=== PATIENT | female | born 1985 | race American Indian/Alaskan Native ===

== ENCOUNTER 2022-04-15 13:24 | Emergency (ER) | payer OTHER ==
[2022-04-15] MEDS ORDERED: SODIUM CHLORIDE 0.9% 1000 ML 1,000 ML IV ONE (21:18)
[2022-04-15] MEDS ORDERED: MORPHINE 4 MG/1 ML INJ IV ONE (21:18)
[2022-04-15] MEDS ORDERED: KETOROLAC 30 MG/1 ML INJ IV ONE (21:18)
[2022-04-15] MEDS ORDERED: ONDANSETRON 4 MG/2 ML INJ IV ONE (21:18)
--- NOTE | 2022-04-15 22:11 | Emergency Department Report ---
ED Female HPI - General Chief complaint: Vaginal Bleeding Stated complaint: ABNORMAL BLEEDING Time Seen by Provider: 04/15/22 20:15 Source: patient Mode of arrival: Ambulatory Limitations: No Limitations - History of Present Illness Initial comments: 36-year-old female presenting with vaginal bleeding f. Patient states that she has been having heavy bleeding for the past 4 weeks, however it is getting much heavier with clots. Describes sharp pain in the pelvic area, symptoms associated with nausea and vomiting. On examination patient is hysterical, she is crying. She denies history of fibroids, endometriosis, ovarian cyst. She denies being , no headache dizziness or vision changes, no chest pain no shortness of breath, no flank pain - Related Data Previous Rx's Medication Instructions Recorded Last Taken Type Naproxen [Naprosyn] 375 mg PO BID PRN #20 tablet 04/16/22 Unknown Rx Ondansetron [Zofran Odt] 4 mg PO Q8HR PRN #12 tab.rapdis 04/16/22 Unknown Rx Allergies Allergy/AdvReac Type Severity Reaction Status Date / Time No Known Allergies Allergy Unverified 04/15/22 16:35 ED Review of Systems ROS: Stated complaint: ABNORMAL BLEEDING Other details as noted in HPI Constitutional: no symptoms reported Eyes: as per HPI ENT: as per HPI Respiratory: see HPI Cardiovascular: denies: chest pain, palpitations Endocrine: denies: excessive sweating Gastrointestinal: abdominal pain. denies: nausea, diarrhea Genitourinary: abnormal menses Musculoskeletal: denies: back pain Skin: denies: rash Neurological: denies: headache, weakness, numbness Psychiatric: denies: homicidal thoughts, suicidal thoughts ED Past Medical Hx - Past Medical History Previous Medical History?: No - Surgical History Past Surgical History?: No - Medications Home Medications: Home Medications Medication Instructions Recorded Confirmed Last Taken Type Naproxen [Naprosyn] 375 mg PO BID PRN #20 tablet 04/16/22 Unknown Rx Ondansetron [Zofran Odt] 4 mg PO Q8HR PRN #12 tab.rapdis 04/16/22 Unknown Rx ED Physical Exam - General Limitations: No Limitations General appearance: alert, in distress - Head Head exam: Present: atraumatic - Eye Eye exam: Present: normal appearance - ENT ENT exam: Present: normal exam, normal orophraynx - Neck Neck exam: Present: normal inspection. Absent: tenderness - Respiratory Respiratory exam: Present: normal lung sounds bilaterally. Absent: respiratory distress, wheezes - Cardiovascular Cardiovascular Exam: Present: regular rate, normal rhythm - GI/Abdominal GI/Abdominal exam: Present: soft. Absent: distended, tenderness - Extremities Exam Extremities exam: Present: normal inspection, full ROM, normal capillary refill - Back Exam Back exam: Present: normal inspection, full ROM. Absent: CVA tenderness (R) - Neurological Exam Neurological exam: Present: alert, oriented X3, CN II-XII intact, normal gait - Psychiatric Psychiatric exam: Present: normal affect, normal mood - Skin Skin exam: Present: warm, dry, intact, normal color ED Course Vital Signs 04/16/22 05:16 Temperature 98.6 F Pulse Rate 87 Respiratory 15 Rate Blood Pressure 102/47 [Right] O2 Sat by Pulse 98 Oximetry ED Medical Decision Making - Radiology Data Radiology results: report reviewed IMPRESSION: 1. Endometrial thickening and surrounding endometrial fluid, which could be benign and physiologic in a patient of this age. 2. Small hyperechoic right ovarian cyst that most likely represents a hemorrhagic cyst and simple appearing small left ovarian follicular cysts. 3. Consider follow-up pelvic ultrasound in 2-3 months to ensure resolution of endometrial thickening and right ovarian hemorrhagic cyst. - Medical Decision Making 36-year-old female presenting with vaginal bleeding f. Patient states that she has been having heavy bleeding for the past 4 weeks, however it is getting much heavier with clots. Describes sharp pain in the pelvic area, symptoms associated with nausea and vomiting. On examination patient is hysterical, she is crying. She denies history of fibroids, endometriosis, ovarian cyst. She denies being , no headache dizziness or vision changes, no chest pain no shortness of breath, no flank pain. IMPRESSION: 1. Endometrial thickening and surrounding endometrial fluid, which could be benign and physiologic in a patient of this age. 2. Small hyperechoic right ovarian cyst that most likely represents a hemorrhagic cyst and simple appearing small left ovarian follicular cysts. 3. Consider follow-up pelvic ultrasound in 2-3 months to ensure resolution of endometrial thickening and right ovarian hemorrhagic cyst. Patient has remained much stable throughout ED course, pain addressed with significant improvement, her vital signs also been stable, based on her findings discharged home with supportive therapy NSAIDs as well as OB referral. Patient remained stable nontoxic-appearing, afebrile, ambulating steadily without assistance. Gone over ED findings with patient as well as plan for follow-up. Also discussed return precautions with patient, all questions and concerns addressed. Patient is stable to be discharged follow-up outpatient. Audio voice dictation device used, hence the chart might contain some dictation errors, mispronunciations, wrong spelling and wrong verbiage. Critical care attestation.: If time is entered above; I have spent that time in minutes in the direct care of this critically ill patient, excluding procedure time. ED Disposition Clinical Impression: Hemorrhagic cyst, DUB (dysfunctional uterine bleeding), Pelvic pain Disposition: HOME / SELF CARE / HOMELESS Is pt being admited?: No Does the pt Need Aspirin: No Condition: Stable Instructions: Ovarian Cyst, [id number] Prescriptions: Naproxen [Naprosyn] 375 mg PO BID PRN #20 tablet PRN Reason: Pain , Severe (7-10) Ondansetron [Zofran Odt] 4 mg PO Q8HR PRN #12 tab.rapdis PRN Reason: Nausea And Vomiting Referrals: DEBBY MILLER MD [Primary Care Provider] - 3-5 Days CHRISTAL BHAGAT MD [Staff Physician] - 3-5 Days
--- NOTE | 2022-04-16 01:33 | Ultrasound Report ---
ULTRASOUND PELVIS INDICATION / CLINICAL INFORMATION: pelvic pain. TECHNIQUE: Transvaginal. Duplex Color Doppler used: Yes. COMPARISON: None available FINDINGS: UTERUS: - Appearance: No significant abnormality. - Size (cm): 9.7 x 5.4 x 5.3 - Endometrial Complex (if present): Thickened. Thickness in cm (if measured) = 2.1 cm - Mass or cyst: None. - Additional findings: There is mild vascularity within the endometrial thickening and surrounding en dometrial fluid. RIGHT ADNEXA: Hyperechoic right ovarian cyst measuring 1.5 cm that most likely represents a hemorrhag ic cyst. Normal color Doppler blood flow. LEFT ADNEXA: Simple appearing left ovarian follicular cysts with the largest measuring 2.3 cm. Normal color Doppler blood flow. URINARY BLADDER: Decompressed FREE FLUID: None. ADDITIONAL FINDINGS: None. IMPRESSION: 1. Endometrial thickening and surrounding endometrial fluid, which could be benign and physiologic in a patient of this age. 2. Small hyperechoic right ovarian cyst that most likely represents a hemorrhagic cyst and simple carmelita earing small left ovarian follicular cysts. 3. Consider follow-up pelvic ultrasound in 2-3 months to ensure resolution of endometrial thickening and right ovarian hemorrhagic cyst. Signer Name: Geoffrey Owen MD Signed: 04/16/2022 1:29 AM Workstation Name: [id number]
[2022-04-16 05:47] VITALS: BP 102/47
== END 2022-04-16 05:16 | disposition home or self-care (01) ==
LOC: ED 13:24
DX: N93.9 Abnormal uterine and vaginal bleeding, unspecified (principal); M27.49 Other cysts of jaw; R15.2 Fecal urgency
CPT/HCPCS: 76830; 96361; 96374; 96375; 99283; J1885; J2270; J2405